=== PATIENT | female | born 1990 | race Caucasian/White ===

== ENCOUNTER 2017-01-09 23:16 | Emergency (ER) | payer MEDICAID ==
[2017-01-09 23:21] VITALS: BP 130/89
[2017-01-10] MEDS ORDERED: HYDROCODONE/ACETAMINOPHEN 5-325 MG 6 TAB/DSPK PO PRN (00:55)
--- NOTE | 2017-01-10 00:56 | ER Document Report ---
ED Oral Problem - General Chief Complaint: Toothache Stated Complaint: TOOTHACHE Time seen by provider: 00:55 Mode of Arrival: Ambulatory Information source: Patient TRAVEL OUTSIDE OF THE [place] IN LAST 30 DAYS: No - HPI Patient complains to provider of: Toothache Onset: This evening Onset: Gradual Quality of pain: Achy, Pressure Severity: Moderate Pain Level: 4 Context: Fractured tooth Associated symptoms: None Similar symptoms previously: No Recently seen / treated by doctor/dentist: No Notes: Patient is a 26-year-old female who recently moved to the area from [place] presents to the emergency room complaining of dental pain started approximately 8 hours prior to arrival, she reports a history of a fractured tooth but is unsure when she actually fractured it, denies any recent injury, no fevers, no drainage - Related Data Allergies/Adverse Reactions: No Known Allergies Allergy (Verified 01/09/17 23:48) Past Medical History - General Information source: Patient - Social History Smoking Status: Current Every Day Smoker Frequency of alcohol use: Occasional Drug Abuse: None Family History: Reviewed & Not Pertinent Patient has suicidal ideation: No Patient has homicidal ideation: No Renal/ Medical History: Denies: Hx Peritoneal Dialysis Review of Systems - Review of Systems Constitutional: No symptoms reported EENT: Dental problem Cardiovascular: No symptoms reported Respiratory: No symptoms reported Gastrointestinal: No symptoms reported Genitourinary: No symptoms reported Female Genitourinary: No symptoms reported Musculoskeletal: No symptoms reported Skin: No symptoms reported Hematologic/Lymphatic: No symptoms reported Neurological/Psychological: No symptoms reported -: Yes All other systems reviewed and negative Physical Exam - Vital signs Vitals: Temp Pulse Resp BP Pulse Ox 97.9 F 71 16 130/89 H 98 01/09/17 23:20 01/09/17 23:20 01/09/17 23:20 01/09/17 23:20 01/09/17 23:20 Interpretation: Normal - General Notes: - General General appearance: Appears well, Alert In distress: None - HEENT Head: Normocephalic, Atraumatic Eyes: Normal Conjunctiva: Normal Extraocular movements intact: Yes Eyelashes: Normal Pupils: PERRL - Respiratory Respiratory status: No respiratory distress - Cardiovascular Rhythm: Regular - Abdominal Inspection: Normal - Back Back: Normal - Extremities General upper extremity: Normal inspection General lower extremity: Normal inspection - Neurological Neuro grossly intact: Yes Orientation: AAOx4 Miguel Coma Scale Eye Opening: Spontaneous Miguel Coma Scale Verbal: Oriented Miguel Coma Scale Motor: Obeys Commands Rogers Coma Scale Total: 15 - Psychological Associated symptoms: Normal affect, Normal mood - Skin Skin Temperature: Warm Skin Moisture: Dry Skin Color: Normal - HEENT Mouth/Lips: Dental fracture Mucous membranes: Normal Teeth diagram: 1 - Dental fracture, mild erythema to gingiva Course - Re-evaluation Re-evalutation: 01/10/17 05:45 Patient provided with pain medication and information for follow-up with dentist in the area, advised to return if symptoms worsen, patient acknowledges understanding and agreement with this plan - Vital Signs Vital signs: Temp Pulse Resp BP Pulse Ox 97.9 F 71 16 130/89 H 98 01/09/17 23:20 01/09/17 23:20 01/09/17 23:20 01/09/17 23:20 01/09/17 23:20 Discharge - Discharge Clinical Impression: Tooth ache Condition: Stable Disposition: HOME, SELF-CARE Instructions: Toothache ([facility]), Oral Narcotic Medication ([facility]), [facility], Dentist Additional Instructions: Follow up with a dentist within the next week. Return to the ER immediately if symptoms worsen or any additional concerns. Prescriptions: Hydrocodone/Acetaminophen [Hydrocodon-Acetaminophen 5-325] 1 each PO Q6 #20 tablet
== END 2017-01-10 01:05 | disposition home or self-care (01) ==
LOC: EDBD 23:16 → ER 23:16
DX: K08.89 Other specified disorders of teeth and supporting structures (principal); F17.200 Nicotine dependence, unspecified, uncomplicated; L53.9 Erythematous condition, unspecified
CPT/HCPCS: 99282

== ENCOUNTER → 2018-08-30 | Outpatient (CLI) | payer SELFPAY ==
--- NOTE | 2018-08-30 16:33 | RADIOLOGY REPORT (SQ) ---
EXAM DESCRIPTION: U/S [id number] TRNABD 1GES W/ODOP COMPLETED DATE/TIME: 08/30/2018 4:19 pm REASON FOR STUDY: Z34.81 ENCOUNTER FOR SUPRVSN OF NORMAL , FIRST TRIMESTER Z34.81 ENCOUNTE R FOR SUPRVSN OF NORMAL , FIRST TRIM COMPARISON: None. TECHNIQUE: Transvaginal and transabdominal static and realtime grayscale images acquired of the pelv is. Additional selected spectral and color Doppler images recorded. All images stored on PACs. bHCG: Not available. CLINICAL DATES: EGA LIMITATIONS: None. FINDINGS: FETUS: Single Living intrauterine . ULTRASOUND EGA: 11 weeks 2 days ULTRASOUND TAMARA: 03/19/2019 EFW: Not applicable less than 20 weeks. CRL: 4.5 cm FHR: 162 beats per minute. SURVEY: No visualized anomalies. AMNIOTIC FLUID: Adequate amount. PLACENTA: Not yet developed due to early gestation. SUBCHORIONIC BLEED: No. SIZE OF BLEED: Not applicable. UTERUS: No masses. No anomalies. CERVICAL LENGTH: 4.3 cm. Closed. RIGHT ADNEXA: Ovary not identified due to poor acoustical window. No adnexal free fluid. No adnexal masses. LEFT ADNEXA: Ovary not identified due to poor acoustical window. No adnexal free fluid. No adnexal masses. FREE FLUID: None. OTHER: No other significant finding. IMPRESSION: LIVING INTRAUTERINE . EGA 11 weeks 2 days. Trimester of : First - 0 to 13 weeks. TECHNICAL DOCUMENTATION: JOB ID: [id number] [employer]- All Rights Reserved Reading location - IP/workstation name: [email or web address]
== END ==
LOC: RAD 18:30
PROVIDERS: ATTEND Nurse Practitioner
DX: Z34.81 Encounter for supervision of other normal pregnancy, first trimester (principal)
CPT/HCPCS: 76801

== ENCOUNTER 2018-12-27 13:23 | Emergency (ER) | payer MEDICAID ==
[2018-12-27 13:44] VITALS: BP 118/58
[2018-12-27] MEDS ORDERED: RINGERS SOLUTION,LACTATED 1,000 ML IV ONE (14:46)
--- NOTE | 2018-12-27 14:47 | ER Document Report ---
ED Medical Screen (RME) - General Chief Complaint: Back Pain Stated Complaint: BACK PAIN Time Seen by Provider: 12/27/18 14:40 Primary Care Provider: ABDOUL BHATTI NP [Primary Care Provider] - Follow up as needed Notes: 29 weeks female, , presents with lower back pain general malaise, general body aches and pain, sore throat for the last 2-3 days. She is currently on Keflex for presumed UTI. Examination pharyngotonsillar mucosa is erythematous, appears weak and dehydrated. TRAVEL OUTSIDE OF THE [place] IN LAST 30 DAYS: No - Related Data Allergies/Adverse Reactions: No Known Allergies Allergy (Verified 12/27/18 13:25) Past Medical History Renal/ Medical History: Denies: Hx Peritoneal Dialysis Physical Exam - Vital signs Vitals: Temp Pulse Resp BP Pulse Ox 97.5 F 71 14 118/58 L 97 12/27/18 13:43 12/27/18 13:43 12/27/18 13:43 12/27/18 13:43 12/27/18 13:43 Course - Vital Signs Vital signs: Temp Pulse Resp BP Pulse Ox 97.5 F 71 14 118/58 L 97 12/27/18 13:43 12/27/18 13:43 12/27/18 13:43 12/27/18 13:43 12/27/18 13:43 Doctor's Discharge - Discharge Referrals: ABDOUL BHATTI NP [Primary Care Provider] - Follow up as needed
[2018-12-27 15:34] LABS: HEMATOCRIT 39.3 % (36.0-47.0); HEMOGLOBIN 13.5 g/dL (12.0-15.5); MEAN CORPUSCULAR HEMOGLOBIN 31.1 pg (27.0-33.4); MEAN CORPUSCULAR HGB CONC 34.3 g/dL (32.0-36.0); MEAN CORPUSCULAR VOLUME 91 fl (80-97); PLATELET COUNT 202 10^3/uL (150-450); RED BLOOD COUNT 4.32 10^6/uL (3.72-5.28); RED CELL DISTRIBUTION WIDTH 13.9 % (11.5-14.0); WHITE BLOOD COUNT 11.9 10^3/uL (4.0-10.5)
[2018-12-27 16:42] LABS: APPEARANCE,URINE CLOUDY; BILIRUBIN,URINE NEGATIVE (NEGATIVE); COLOR,URINE YELLOW; GLUCOSE, URINE NEGATIVE (NEGATIVE); KETONES,URINE TRACE mg/dL (NEGATIVE); LEUKOCYTE ESTERASE,URINE MODERATE (NEGATIVE); NITRITE,URINE NEGATIVE (NEGATIVE); PROTEIN,URINE NEGATIVE (NEGATIVE); UROBILINOGEN,URINE NEGATIVE mg/dL (<2.0)
[2018-12-27 16:45] LABS: A TYPE INFLUENZA AG NEGATIVE (NEGATIVE); B INFLUENZA AG NEGATIVE (NEGATIVE)
[2018-12-27 17:30] LABS: ALANINE AMINOTRANSFERASE 19 U/L (9-52); ALBUMIN 3.7 g/dL (3.5-5.0); ALKALINE PHOSPHATASE 93 U/L (38-126); ANION GAP 10 (5-19); ASPARTATE AMINO TRANSFERASE 16 U/L (14-36); BILIRUBIN,DIRECT 0.2 mg/dL (0.0-0.4); BILIRUBIN,TOTAL 0.4 mg/dL (0.2-1.3); BLOOD UREA NITROGEN 6 mg/dL (7-20); CARBON DIOXIDE 23 mmol/L (22-30); CHLORIDE 104 mmol/L (98-107); GLUCOSE 83 mg/dL (75-110); POTASSIUM 4.1 mmol/L (3.6-5.0); SODIUM 136.5 mmol/L (137-145); TOTAL PROTEIN 6.7 g/dL (6.3-8.2)
--- NOTE | 2018-12-27 17:37 | RADIOLOGY REPORT (SQ) ---
EXAM DESCRIPTION: U/S OB LIMITED COMPLETED DATE/TIME: 12/27/2018 5:26 pm REASON FOR STUDY: abdominal pain 29wks gravid COMPARISON: 08/30/2018 TECHNIQUE: Limited transabdominal grayscale ultrasound for evaluation of specific requested obstetri mayo parameters. LIMITATIONS: None. FINDINGS: CERVICAL LENGTH: Not measured. Closed. АННА: 17.5 cm. FHR: 147 beats per minute. PRESENTATION: Breech. PLACENTA: Posterior. ANATOMY: Not assessed OTHER: No other significant findings. IMPRESSION: LIMITED OBSTETRICAL ULTRASOUND WITH MEASURED PARAMETERS DELINEATED ABOVE. Trimester of : Third trimester - 28 weeks to delivery. TECHNICAL DOCUMENTATION: JOB ID: [id number] [employer]- All Rights Reserved Reading location - IP/workstation name: [email or web address]
[2018-12-27 17:45] LABS: FREE T4 (FREE THYROXINE) 0.99 ng/dL (0.78-2.19)
[2018-12-27] MEDS ORDERED: AMOXICILLIN TR/POT CLAVULANATE 500-125 MG TAB PO ONE (17:54)
--- NOTE | 2018-12-27 17:56 | ER Document Report ---
ED General - General Chief Complaint: Back Pain Stated Complaint: BACK PAIN Time Seen by Provider: 12/27/18 14:40 Primary Care Provider: ABDOUL BHATTI NP [Primary Care Provider] - Follow up in 3-5 days Notes: Patient is a 28-year-old female, that is 29 weeks gravid, that presents to the emergency department for chief complaint of right ear pain, sore throat and abdominal discomfort. Patient states she is been feeling like this for a few days now, she was initially seen by urgent care on Tuesday and was diagnosed with an ear infection and a UTI and started on Keflex, she has not taken all the doses and has missed a few. She states her symptoms have persisted, she had a dry cough as well, she describes her abdominal pain as a cramping sensation as a 2 out of 10 at this time, is overall felt fatigued, and having body aches all over. She denies fevers, chills, chest pain, shortness of breath, nausea, vo miting, or diarrhea. Denies vaginal bleeding, dysuria, or hematuria. Past Medical History: Denies chronic medical conditions Past Surgical History: Denies recent or pertinent surgical history Social History: Denies current tobacco, alcohol or drug use. Family History: Reviewed and noncontributory for presenting illness Allergies: Reviewed, see documented allergy list. REVIEW OF SYSTEMS: Other than noted above, the 12 point review of systems was reviewed with the patient and were negative, all pertinent findings are included in the HPI. PHYSICAL EXAMINATION: Vital signs reviewed, nursing noted reviewed. GENERAL: Well-appearing, well-nourished and in no acute distress. HEAD: Atraumatic, normocephalic. EYES: Eyes appear normal, extraocular movements intact, sclera anicteric, conjunctiva are normal. ENT: nares patent, oropharynx clear without exudates. Moist mucous membranes. Right TM is erythematous, bulging and injected, left TM appears normal. NECK: Normal range of motion, supple without lymphadenopathy LUNGS: Breath sounds clear to auscultation bilaterally and equal. No wheezes rales or rhonchi. HEART: Regular rate and rhythm without murmurs ABDOMEN: Soft, nontender, gravid, normoactive bowel sounds. No rebound, guarding, or rigidity. No masses appreciated. EXTREMITIES: Nontender, good range of motion, no pitting or edema. NEUROLOGICAL: No focal neurological deficits. Moves all extremities spontaneously Motor and sensory grossly intact on exam. PSYCH: Normal mood, normal affect. SKIN: Warm, Dry, normal turgor, no rashes or lesions noted on exposed skin TRAVEL OUTSIDE OF THE [place] IN LAST 30 DAYS: No - Related Data Allergies/Adverse Reactions: No Known Allergies Allergy (Verified 12/27/18 13:25) Past Medical History - Social History Smoking Status: Current Some Day Smoker Chew tobacco use (# tins/day): No Frequency of alcohol use: None Drug Abuse: None Family History: Reviewed & Not Pertinent Patient has suicidal ideation: No Patient has homicidal ideation: No Renal/ Medical History: Denies: Hx Peritoneal Dialysis Physical Exam - Vital signs Vitals: Temp Pulse Resp BP Pulse Ox 97.5 F 71 14 118/58 L 97 12/27/18 13:43 12/27/18 13:43 12/27/18 13:43 12/27/18 13:43 12/27/18 13:43 Course - Re-evaluation Re-evalutation: Patient seen and examined vital signs reviewed. Laboratory data and imaging were ordered as appropriate for the patient's presenting symptoms and complaint, with consideration of any critical or life threatening conditions that may be associated with their obtained history and exam as noted above. Patient was treated with Tylenol and IV fluids Results were reviewed when available and demonstrated mild leukocytosis, was otherwise unremarkable, OB ultrasound was unremarkable for any acute or concerning findings, single live intrauterine . UA was positive for signs of UTI, sent for culture The patient was re-evaluated and was stable and improved Evaluation was most consistent with acute otitis media, UTI, will treat with Aug mentin for 7 days and have her follow-up with PRINTING EQUIPMENT MECHANIC APPRENTICE. Advised her to discontinue the previously prescribed Keflex. Results were discussed with the patient at this point, after careful consideration I feel that that patient can be discharged from the emergency department, the patient was educated treatments and reasons to return to the emergency department based on their presumed diagnosis as noted above, they were advised to followup with a primary care physician in 2-3 days. Patient was agree able to plan of care. *Note is created using voice recognition software and may contain spelling, s yntax or grammatical errors. Laboratory 02/13/19 02/13/19 02/13/19 15:00 15:05 15:05 WBC 11.9 H RBC 4.32 Hgb 13.5 Hct 39.3 MCV 91 MCH 31.1 MCHC 34.3 RDW 13.9 Plt Count 202 Sodium Cancelled Potassium Cancelled Chloride Cancelled Carbon Dioxide Cancelled Anion Gap Cancelled BUN Cancelled Creatinine Cancelled Est GFR ( Amer) Cancelled Est GFR (Non-Af Amer) Cancelled Glucose Cancelled Calcium Cancelled Total Bilirubin Cancelled Direct Bilirubin Cancelled Neonat Total Bilirubin Cancelled Neonat Direct Bilirubin Cancelled Neonat Indirect Bili Cancelled AST Cancelled ALT Cancelled Alkaline Phosphatase Cancelled Total Protein Cancelled Albumin Cancelled TSH Free T4 Urine Color Urine Appearance Urine pH Ur Specific [place] Urine Protein Urine Glucose (UA) Urine Ketones Urine Blood Urine Nitrite Urine Bilirubin Urine Urobilinogen Ur Leukocyte Esterase Urine WBC (Auto) Urine RBC (Auto) Urine Bacteria (Auto) Squamous Epi Cells Auto Urine Mucus (Auto) Urine Ascorbic Acid Influenza A (Rapid) Influenza B (Rapid) Group A Strep Rapid NEGATIVE 12/27/18 12/27/18 12/27/18 15:05 16:25 16:50 WBC RBC Hgb Hct MCV MCH MCHC RDW Plt Count Sodium Potassium Chloride Carbon Dioxide Anion Gap BUN Creatinine Est GFR ( Amer) Est GFR (Non-Af Amer) Glucose Calcium Total Bilirubin Direct Bilirubin Neonat Total Bilirubin Neonat Direct Bilirubin Neonat Indirect Bili AST ALT Alkaline Phosphatase Total Protein Albumin TSH 0.39 L Free T4 0.99 Urine Color YELLOW Urine Appearance CLOUDY Urine pH 6.0 Ur Specific [place] 1.020 Urine Protein NEGATIVE Urine Glucose (UA) NEGATIVE Urine Ketones TRACE H Urine Blood NEGATIVE Urine Nitrite NEGATIVE Urine Bilirubin NEGATIVE Urine Urobilinogen NEGATIVE Ur Leukocyte Esterase MODERATE H Urine WBC (Auto) 11 Urine RBC (Auto) 4 Urine Bacteria (Auto) 3+ Squamous Epi Cells Auto 21 Urine Mucus (Auto) FEW Urine Ascorbic Acid NEGATIVE Influenza A (Rapid) NEGATIVE Influenza B (Rapid) NEGATIVE Group A Strep Rapid 12/27/18 16:50 WBC RBC Hgb Hct MCV MCH MCHC RDW Plt Count Sodium 136.5 L Potassium 4.1 Chloride 104 Carbon Dioxide 23 Anion Gap 10 BUN 6 L Creatinine 0.50 L Est GFR ( Amer) > 60 Est GFR (Non-Af Amer) > 60 Glucose 83 Calcium 9.0 Total Bilirubin 0.4 Direct Bilirubin 0.2 Neonat Total Bilirubin Not Reportable Neonat Direct Bilirubin Not Reportable Neonat Indirect Bili Not Reportable AST 16 ALT 19 Alkaline Phosphatase 93 Total Protein 6.7 Albumin 3.7 TSH Free T4 Urine Color Urine Appearance Urine pH Ur Specific [place] Urine Protein Urine Glucose (UA) Urine Ketones Urine Blood Urine Nitrite Urine Bilirubin Urine Urobilinogen Ur Leukocyte Esterase Urine WBC (Auto) Urine RBC (Auto) Urine Bacteria (Auto) Squamous Epi Cells Auto Urine Mucus (Auto) Urine Ascorbic Acid Influenza A (Rapid) Influenza B (Rapid) Group A Strep Rapid Obstetrics Ultrasound 12/27/18 16:13 IMPRESSION: LIMITED OBSTETRICAL ULTRASOUND WITH MEASURED PARAMETERS DELINEATED ABOVE. Trimester of : Third trimester - 28 weeks to delivery. - Vital Signs Vital signs: Temp Pulse Resp BP Pulse Ox 97.5 F 71 14 118/58 L 97 12/27/18 13:43 12/27/18 13:43 12/27/18 13:43 12/27/18 13:43 12/27/18 13:43 - Laboratory Result Diagrams: 12/27/18 15:05 12/27/18 16:50 Laboratory results interpreted by me: 12/27/18 12/27/18 12/27/18 15:05 16:25 16:50 WBC 11.9 H Sodium BUN Creatinine TSH 0.39 L Urine Ketones TRACE H Ur Leukocyte Esterase MODERATE H 12/27/18 16:50 WBC Sodium 136.5 L BUN 6 L Creatinine 0.50 L TSH Urine Ketones Ur Leukocyte Esterase Discharge - Discharge Clinical Impression: Otitis media Qualifiers: Otitis media type: unspecified Chronicity: acute Qualified Code(s): H66.90 - Otitis media, unspecified, unspecified ear UTI (urinary tract infection) Qualifiers: Urinary tract infection type: site unspecified Hematuria presence: without hematuria Qualified Code(s): N39.0 - Urinary tract infection, site not specified Disposition: HOME, SELF-CARE Instructions: Otitis Media ([facility]), Urinary Tract Infection ([facility]) Additional Instructions: Please take the prescribed antibiotic and complete the entire course, over 7 days, and discontinue your previously prescribed antibiotic. Please follow-up with the PRINTING EQUIPMENT MECHANIC APPRENTICE's. And you can take Tylenol/acetaminophen 1000 mg every 8 hours as needed for ear pain, or generalized body aches. Prescriptions: Amox Tr/Potassium Clavulanate [Augmentin 875-125 Tablet] 1 tab PO BID #14 tablet Referrals: ABDOUL HBATTI, POLICE CAPTAIN SENIOR [Primary Care Provider] - Follow up in 3-5 days
[2018-12-27 17:59] LABS: THYROID STIMULATING HORMONE 0.39 uIU/mL (0.47-4.68)
== END 2018-12-27 18:49 | disposition home or self-care (01) ==
LOC: ER 13:23
DX: O99.830 Other infection carrier state complicating pregnancy (principal); H66.90 Otitis media, unspecified, unspecified ear; O23.43 Unspecified infection of urinary tract in pregnancy, third trimester; O26.893 Other specified pregnancy related conditions, third trimester; M54.9 Dorsalgia, unspecified; H92.01 Otalgia, right ear; J02.9 Acute pharyngitis, unspecified; R10.9 Unspecified abdominal pain; Z3A.29 29 weeks gestation of pregnancy; F17.200 Nicotine dependence, unspecified, uncomplicated
CPT/HCPCS: 99284; 96360; 36415; 87070; 87086; 84439; 87880; 84443; 85027; 80053; 81001; 87804; 76815; J3490; J7120

== ENCOUNTER 2019-01-04 12:05 | Outpatient (CLI) | payer MEDICAID ==
[2019-01-04] MEDS ORDERED: ACETAMINOPHEN 325 MG TABLET PO ONE (12:50)
[2019-01-04] MEDS ORDERED: RINGERS SOLUTION,LACTATED 1,000 ML IV PRN (12:50)
[2019-01-04 13:01] LABS: APPEARANCE,URINE SLIGHTLY-CLOUDY; BILIRUBIN,URINE SMALL (NEGATIVE); COLOR,URINE AMBER; GLUCOSE, URINE NEGATIVE (NEGATIVE); KETONES,URINE TRACE mg/dL (NEGATIVE); LEUKOCYTE ESTERASE,URINE LARGE (NEGATIVE); NITRITE,URINE NEGATIVE (NEGATIVE); PROTEIN,URINE NEGATIVE (NEGATIVE); URINE SPECIFIC GRAVITY 1.028
[2019-01-04] MEDS ORDERED: ACETAMINOPHEN 325 MG TABLET ONE (13:15)
[2019-01-04 13:24] LABS: URINE AMPHETAMINES SCREEN NEGATIVE; URINE BARBITURATES SCREEN NEGATIVE; URINE BENZODIAZEPINES SCREEN NEGATIVE; URINE COCAINE SCREEN NEGATIVE; URINE MARIJUANA (THC) SCREEN NEGATIVE; URINE METHADONE SCREEN NEGATIVE; URINE PHENCYCLIDINE SCREEN NEGATIVE
== END 2019-01-04 15:39 | disposition home or self-care (01) ==
LOC: LC 12:05
PROVIDERS: ATTEND Obstetrics & Gynecology Gynecology
PROC: 4A1HXCZ Monitoring of Products of Conception, Cardiac Rate, External Approach (ICD-10-PCS; principal; 2019-01-04)
DX: O26.893 Other specified pregnancy related conditions, third trimester (principal); R10.2 Pelvic and perineal pain; M54.5 Low back pain; Z3A.29 29 weeks gestation of pregnancy
CPT/HCPCS: 59899; 81005; 80307; J3490

== ENCOUNTER 2019-03-05 16:27 | Emergency (ER) | payer MEDICAID ==
--- NOTE | 2019-03-05 16:56 | ER Document Report ---
ED Medical Screen (RME) - General Chief Complaint: Shortness Of Breath Stated Complaint: SHORTNESS OF BREATH Time Seen by Provider: 03/05/19 16:48 Primary Care Provider: KESHA MARTIN MD [Primary Care Provider] - Follow up as needed Mode of Arrival: Ambulatory Information source: Patient TRAVEL OUTSIDE OF THE [place] IN LAST 30 DAYS: No - HPI Patient complains to provider of: sob Notes: 03/05/19 16:54 Patient sent in by her DIRECTOR STATISTICAL PROGRAMMING. The patient is 38 weeks . G6, P3. For the last week she has gained 4 pounds and feels like her legs are more swollen than normal. For the last 24 hours been feeling significantly short of breath. She is unable to go up her stairs due to shortness of breath. She was seen in the OBs office and was sent to the emergency department to be evaluated for her shortness of breath. If we are able to clear her from a shortness of breath standpoint, she is instructed to go up to labor and delivery for evaluation. Exam Nontoxic-appearing. Stable vitals. Patient does appear to be slightly short of breath when talking. Lungs are clear. She does have some edema to the lower extremities. Heart sounds normal. Plan CBC, CMP, troponin, BNP, EKG, uric acid, chest x-ray, urinalysis. An initial examination was made on the patient as part of the triage process, and it was determined a more comprehensive evaluation was necessary. Initial labs were ordered and patient was transferred to another provider in the ED who assumed care and finished evaluation and plan. - Related Data Allergies/Adverse Reactions: No Known Allergies Allergy (Verified 03/05/19 16:27) Past Medical History - Social History Chew tobacco use (# tins/day): No Frequency of alcohol use: None Drug Abuse: None Renal/ Medical History: Denies: Hx Peritoneal Dialysis Physical Exam - Vital signs Vitals: Temp Pulse Resp BP Pulse Ox 97.8 F 101 H 16 122/86 H 97 03/05/19 16:31 03/05/19 16:31 03/05/19 16:31 03/05/19 16:31 03/05/19 16:31 Course - Vital Signs Vital signs: Temp Pulse Resp BP Pulse Ox 97.8 F 101 H 16 122/86 H 97 03/05/19 16:31 03/05/19 16:31 03/05/19 16:31 03/05/19 16:31 03/05/19 16:31 Doctor's Discharge - Discharge Referrals: KESHA MARTIN MD [Primary Care Provider] - Follow up as needed
--- NOTE | 2019-03-05 17:43 | RADIOLOGY REPORT (SQ) ---
EXAM DESCRIPTION: CHEST SINGLE VIEW COMPLETED DATE/TIME: 03/05/2019 5:09 pm REASON FOR STUDY: preg, sob, leg swelling COMPARISON: None. EXAM PARAMETERS: NUMBER OF VIEWS: One view. TECHNIQUE: Single frontal radiographic view of the chest acquired. RADIATION DOSE: NA LIMITATIONS: None. FINDINGS: LUNGS AND PLEURA: No opacities, masses or pneumothorax. No pleural effusion. MEDIASTINUM AND HILAR STRUCTURES: No masses. Contour normal. HEART AND VASCULAR STRUCTURES: Heart normal in size. Normal vasculature. BONES: No acute findings. HARDWARE: None in the chest. OTHER: No other significant finding. IMPRESSION: NO ACUTE RADIOGRAPHIC FINDING IN THE CHEST. TECHNICAL DOCUMENTATION: JOB ID: [id number] 2010 [employer]- All Rights Reserved Reading location - IP/workstation name: [email or web address]
[2019-03-05 17:47] LABS: ABSOLUTE EOSINOPHILS # (AUTO) 0.1 10^3/uL (0.0-0.6); ABSOLUTE MONOCYTES (AUTO) 0.8 10^3/uL (0.1-1.4); ABSOLUTE NEUT (AUTO) 5.8 10^3/uL (1.7-8.2); BASOPHILS % (AUTO) 0.2 % (0-2); EOSINOPHILS % (AUTO) 0.9 % (0-6); HEMATOCRIT 37.2 % (36.0-47.0); HEMOGLOBIN 12.9 g/dL (12.0-15.5); LYMPHOCYTES % (AUTO) 22.6 % (13-45); MEAN CORPUSCULAR HEMOGLOBIN 31.4 pg (27.0-33.4); MEAN CORPUSCULAR HGB CONC 34.7 g/dL (32.0-36.0); MEAN CORPUSCULAR VOLUME 91 fl (80-97); MONOCYTES % (AUTO) 9.4 % (3-13); PLATELET COUNT 139 10^3/uL (150-450); RED BLOOD COUNT 4.11 10^6/uL (3.72-5.28); RED CELL DISTRIBUTION WIDTH 13.6 % (11.5-14.0); SEGMENTED NEUTROPHILS % (AUTO) 66.9 % (42-78); TOTAL CELLS COUNTED % (AUTO) 100 %; WHITE BLOOD COUNT 8.7 10^3/uL (4.0-10.5)
[2019-03-05 18:12] LABS: ALANINE AMINOTRANSFERASE 18 U/L (9-52); ALBUMIN 3.5 g/dL (3.5-5.0); ALKALINE PHOSPHATASE 156 U/L (38-126); ANION GAP 6 (5-19); ASPARTATE AMINO TRANSFERASE 16 U/L (14-36); BILIRUBIN,DIRECT 0.1 mg/dL (0.0-0.4); BILIRUBIN,TOTAL 0.5 mg/dL (0.2-1.3); BLOOD UREA NITROGEN 8 mg/dL (7-20); CALCIUM 9.7 mg/dL (8.4-10.2); CARBON DIOXIDE 21 mmol/L (22-30); CHLORIDE 108 mmol/L (98-107); GLUCOSE 88 mg/dL (75-110); POTASSIUM 4.1 mmol/L (3.6-5.0); SODIUM 135.2 mmol/L (137-145); TOTAL PROTEIN 6.7 g/dL (6.3-8.2); URIC ACID 4.8 mg/dL (2.5-6.2)
[2019-03-05 18:23] LABS: NT PRO BNP 56 pg/mL (<125)
[2019-03-05 18:25] LABS: TROPONIN I < 0.012 ng/mL
--- NOTE | 2019-03-05 19:42 | EKG REPORT ---
SEVERITY:- NORMAL ECG - SINUS RHYTHM : Confirmed by: Aashish Llamas MD 05-Mar-2019 19:41:08
--- NOTE | 2019-03-05 21:16 | ER Document Report ---
ED General - General Chief Complaint: Shortness Of Breath Stated Complaint: SHORTNESS OF BREATH Time Seen by Provider: 03/05/19 16:48 Primary Care Provider: KESHA MARTIN MD [ACTIVE STAFF] - Follow up as needed Mode of Arrival: Ambulatory Notes: Patient is a 28-year-old female at 38 weeks gestation who presents with 24 hours of increasing shortness of breath. Patient apparently has gained 4 pounds within the past 1 week, states that her OB was concerned when she went for a visit today and referred to the emergency department for assessment. Patient reports that her shortness of breath is worsened by exertion. Improved by rest. She regarded as being moderate to severe in nature. Relatively gradual in onset and worsening since that time. Has not had similar symptoms during her previous pregnancies. Denies a history of DVT or pulmonary embolus. Denies fever, cough, sputum production, orthopnea or unilateral leg swelling. She denies any other chronic medical problems or prior surgical history. TRAVEL OUTSIDE OF THE [place] IN LAST 30 DAYS: No - Related Data Allergies/Adverse Reactions: No Known Allergies Allergy (Verified 03/05/19 16:27) Past Medical History - General Information source: Patient - Social History Smoking Status: Never Smoker Chew tobacco use (# tins/day): No Frequency of alcohol use: None Drug Abuse: None Lives with: Family Family History: Reviewed & Not Pertinent Patient has suicidal ideation: No Patient has homicidal ideation: No Renal/ Medical History: Denies: Hx Peritoneal Dialysis Review of Systems - Review of Systems Notes: Constitutional: Negative for fever. HENT: Negative for sore throat. Eyes: Negative for visual changes. Cardiovascular: Negative for chest pain. Respiratory: Positive for shortness of breath. Gastrointestinal: Negative for abdominal pain, vomiting or diarrhea. Genitourinary: Negative for dysuria. Musculoskeletal: Negative for back pain. Skin: Negative for rash. Neurological: Negative for headaches, weakness or numbness. 10 point ROS negative except as marked above and in HPI. Physical Exam - Vital signs Vitals: Temp Pulse Resp BP Pulse Ox 97.8 F 101 H 16 122/86 H 97 03/05/19 16:31 03/05/19 16:31 03/05/19 16:31 03/05/19 16:31 03/05/19 16:31 Interpretation: Tachycardic Notes: PHYSICAL EXAMINATION: GENERAL: Well-appearing, well-nourished and in no acute distress. HEAD: Atraumatic, normocephalic. EYES: Pupils equal round and reactive to light, extraocular movements intact, sclera anicteric, conjunctiva are normal. ENT: nares patent, oropharynx clear without exudates. Moist mucous membranes. NECK: Normal range of motion, supple without lymphadenopathy LUNGS: Breath sounds clear to auscultation bilaterally and equal. No wheezes rales or rhonchi. HEART: Regular rate and rhythm without murmurs ABDOMEN: Soft, gravid uterus, nontender, normoactive bowel sounds. No guarding, no rebound. No masses appreciated. EXTREMITIES: Normal range of motion, 2+ edema in the bilateral lower extremities that is equal and symmetric. No cyanosis. NEUROLOGICAL: No focal neurological deficits. Moves all extremities spontaneously and on command. PSYCH: Normal mood, normal affect. SKIN: Warm, Dry, normal turgor, no rashes or lesions noted. Course - Re-evaluation Re-evalutation: 03/05/19 21:15 Patient presents with 24 hours of progressively worsening shortness of breath worsening with exertion. The patient is currently in the advanced stages of third trimester and not much elevated risk for pulmonary embolus. She is mildly tachycardic at the time of my assessment with heart rate of 105 on manual count at bedside. She does appear to have some mild labored breathing although is in no distress. She has equal and symmetric 2+ edema in the bilateral lower extremities. Her workup to this point is otherwise unremarkable, normal troponin, normal EKG, chest x-ray is clear. The obvious concern at this point is that the patient is high risk for an acute pulmonary embolus and does give symptomology that is concerning for this possible etiology. We had an extensive risks and benefits conversation regarding proceeding with CTA of the chest including radius section exposure to both mother and baby as well as the risks of missing this diagnosis which could include after this conversation the mother did elect to proceed with CTA and understands the risks of this procedure. 03/05/19 23:07 CT of the chest negative for any evidence of acute pulmonary embolus. Suspect that patient symptoms are likely secondary to advanced , increased fluid in the extremities. At this time will discharge with return precautions and follow-up recommendations. Verbal discharge instructions given a the bedside and opportunity for questions given. Medication warnings reviewed. Patient is in agreement with this plan and has verbalized understanding of return precautions and the need for primary care follow-up in the next 24-72 hours. - Vital Signs Vital signs: Temp Pulse Resp BP Pulse Ox 97.5 F 89 21 H 137/82 H 97 03/05/19 20:37 03/05/19 23:21 03/05/19 23:21 03/05/19 23:21 03/05/19 23:21 - Laboratory Result Diagrams: 03/05/19 17:21 03/05/19 17:21 Laboratory results interpreted by me: 03/05/19 03/05/19 17:21 17:21 Plt Count 139 L Sodium 135.2 L Chloride 108 H Carbon Dioxide 21 L Creatinine 0.46 L Alkaline Phosphatase 156 H - Diagnostic Test Radiology reviewed: Reports reviewed - EKG Interpretation by Me Additional EKG results interpreted by me: 03/06/19 03:00 Sinus rhythm, rate 76. No ST elevations or depressions. QTC is 420 Discharge - Discharge Clinical Impression: Shortness of breath due to in third trimester, Bilateral lower extremity edema Condition: Good Disposition: HOME, SELF-CARE Additional Instructions: Thankfully your CT scan is negative for any evidence of a blood clot in your lung. Your other blood work is likewise normal. Your symptoms of shortness of breath are likely due to increasing fluid retention during your as well as the advanced stage of your . Please return if your symptoms worsen, if you become unable to exert your self secondary to shortness of breath, you develop a fever greater than 100.4 F, you have persistent vomiting, or you have any other symptoms that are worrisome to you. Referrals: KESHA MARTIN MD [ACTIVE STAFF] - Follow up as needed
--- NOTE | 2019-03-05 22:27 | RADIOLOGY REPORT (SQ) ---
EXAM DESCRIPTION: CT CHEST ANGIOGRAPHY WITHOUT THEN WITH IV CONTRAST COMPLETED DATE/TME: 03/05/2019 21:14 CLINICAL HISTORY: 28 years, Female, eval pe COMPARISON: None. TECHNIQUE: CT chest angiography was performed following intravenous administration of contrast. Multiplanar reformatted images were provided. 3-D reformatted images were performed on an independent workstation (to include sagittal, and coronal MIPS). Images stored on PACS. All CT scanners at this facility use dose modulation, iterative reconstruction, and/or weight based dosing when appropriate to reduce radiation dose to as low as reasonably achievable (ALARA). [facility]: Dose Right [facility]: CareDose [facility]: Dose Right [facility]: Teradose 4D [facility]: Smart ApiFix LIMITATIONS: None. FINDINGS: Central airways are patent. Lungs are clear. Mediastinal windows show soft tissue density within the anterior mediastinum, likely corresponding to residual thymus given the patient's age. No suspicious hilar or mediastinal lymph node enlargement is appreciated. Heart and great vessels appear normal. The study is adequate for the evaluation of pulmonary emboli. No filling defects are identified to the proximal segmental level. Limited evaluation of the upper abdomen reveals no suspicious findings though there is a partially imaged gravid uterus. Bone windows show no destructive osseous lesions. IMPRESSION: No evidence of pulmonary embolism or other acute abnormality within the chest. TECHNICAL DOCUMENTATION: Quality ID # [id number]: Final reports with documentation of one or more dose reduction techniques (e.g., Automated exposure control, adjustment of the mA and/or kV according to patient size, use of iterative reconstruction technique) copyright 2011 [employer]- All Rights Reserved
[2019-03-05 23:22] VITALS: BP 137/82
== END 2019-03-05 23:21 | disposition home or self-care (01) ==
LOC: ER 16:27
DX: O26.893 Other specified pregnancy related conditions, third trimester (principal); R06.02 Shortness of breath; R00.0 Tachycardia, unspecified; O12.03 Gestational edema, third trimester; O26.03 Excessive weight gain in pregnancy, third trimester; Z3A.38 38 weeks gestation of pregnancy
CPT/HCPCS: 36415; 71045; 71275; 80053; 83880; 84484; 84550; 85025; 93005; 93010; 99285

== ENCOUNTER 2019-03-16 20:54 | Inpatient (IN) | payer MEDICAID ==
[2019-03-16] MEDS ORDERED: RINGERS SOLUTION,LACTATED 1,000 ML IV ONE (21:14)
[2019-03-16] MEDS ORDERED: RINGERS SOLUTION,LACTATED 1,000 ML IV PRN (21:14)
[2019-03-16] MEDS ORDERED: OXYTOCIN/NORMAL SALINE 20 UNIT/1,000 ML RTUINJ ONE (21:16)
[2019-03-16] MEDS ORDERED: LIDOCAINE 1% INJ-PF (10 MG/ML) 30 ML SDV ONE (21:16)
[2019-03-16] MEDS ORDERED: MISOPROSTOL 0.2 MG TABLET ONE (21:16)
[2019-03-16] MEDS ORDERED: OXYTOCIN 10 UNIT/ML VIAL ONE (21:16)
[2019-03-16 21:25] LABS: APPEARANCE,URINE CLOUDY; BILIRUBIN,URINE NEGATIVE (NEGATIVE); COLOR,URINE YELLOW; GLUCOSE, URINE NEGATIVE (NEGATIVE); KETONES,URINE NEGATIVE (NEGATIVE); LEUKOCYTE ESTERASE,URINE LARGE (NEGATIVE); NITRITE,URINE NEGATIVE (NEGATIVE); PROTEIN,URINE NEGATIVE (NEGATIVE); URINE SPECIFIC GRAVITY 1.014; UROBILINOGEN,URINE NEGATIVE mg/dL (<2.0)
[2019-03-16 21:42] LABS: URINE AMPHETAMINES SCREEN NEGATIVE; URINE BARBITURATES SCREEN NEGATIVE; URINE BENZODIAZEPINES SCREEN NEGATIVE; URINE COCAINE SCREEN NEGATIVE; URINE MARIJUANA (THC) SCREEN NEGATIVE; URINE METHADONE SCREEN NEGATIVE; URINE PHENCYCLIDINE SCREEN NEGATIVE
[2019-03-16 21:44] LABS: ABSOLUTE BASOPHILS # (AUTO) 0.1 10^3/uL (0.0-0.2); ABSOLUTE EOSINOPHILS # (AUTO) 0.1 10^3/uL (0.0-0.6); ABSOLUTE LYMPHOCYTES (AUTO) 2.6 10^3/uL (0.5-4.7); ABSOLUTE MONOCYTES (AUTO) 0.8 10^3/uL (0.1-1.4); ABSOLUTE NEUT (AUTO) 8.1 10^3/uL (1.7-8.2); BASOPHILS % (AUTO) 0.6 % (0-2); EOSINOPHILS % (AUTO) 0.7 % (0-6); HEMATOCRIT 36.6 % (36.0-47.0); HEMOGLOBIN 12.4 g/dL (12.0-15.5); LYMPHOCYTES % (AUTO) 22.3 % (13-45); MEAN CORPUSCULAR HEMOGLOBIN 30.8 pg (27.0-33.4); MEAN CORPUSCULAR HGB CONC 33.8 g/dL (32.0-36.0); MEAN CORPUSCULAR VOLUME 91 fl (80-97); MONOCYTES % (AUTO) 7.1 % (3-13); PLATELET COUNT 157 10^3/uL (150-450); RED BLOOD COUNT 4.02 10^6/uL (3.72-5.28); RED CELL DISTRIBUTION WIDTH 13.7 % (11.5-14.0); SEGMENTED NEUTROPHILS % (AUTO) 69.3 % (42-78); TOTAL CELLS COUNTED % (AUTO) 100 %; WHITE BLOOD COUNT 11.7 10^3/uL (4.0-10.5)
[2019-03-16] MEDS ORDERED: EPHEDRINE SULFATE INJ 50 MG/1 ML AMPULE ONE (21:51)
[2019-03-16] MEDS ORDERED: BUPIVACAINE HCL 0.25 % INJ/PF (2.5 MG/1 ML) 30 ML VIAL ONE (21:52)
[2019-03-16] MEDS ORDERED: FENTANYL/BUPIVACAINE/NS/PF 300 MCG/150 ML RTUINJ EPI ONE (21:52)
[2019-03-16] MEDS ORDERED: EPINEPHRINE INJ/PF 1 MG/1 ML AMPULE ONE (21:54)
--- NOTE | 2019-03-16 22:34 | Admission Physical ---
Datetime Report Generated by CPN: 03/16/2019 22:34 CURRENT ADMISSION Chief Complaint: Uterine Contractions Admit Impression : Term, Intrauterine ; Active Labor; Intact Membranes Admit Plan: Admit to Unit; Initiate Labor Protocol ALLERGIES Medication Allergies: No Known Allergies (03/05/2019) OBSTETRICAL HISTORY EDC: 03/17/2019 00:00 : 6 Para: 3 Term: 3 : 0 SAB: 1 IAB: 1 Ectopic: 0 Livin Cesareans: 0 VBACs: 0 Multiple Births: 0 Gestational Diabetes: No Rh Sensitization: No Incompetent Cervix: No EMANUEL: No Infertility: No ART Treatment: No Uterine Anomaly: No IUGR: No Hx Previous C/S: No Macrosomia: No Hx Loss/Stillborn: No PIH: No Hx : No Placenta Previa/Abruption: No Depression/PP Depression: No PTL/PROM: No Post Hemorrhage: No MEDICAL HISTORY Diabetes: No Blood Transfusion: No Pulmonary Disease (Asthma, TB): No Breast Disease: No 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: No Heart Disease: No Hosp/Surgery: No Autoimmune Disorder: No Anesthetic Complications: No Kidney Disease: No Abnormal Pap Smear: No Neuro/Epilepsy: No Psychiatric Disorders: No Other Medical Diseases: No Hepatitis/Liver Disease: No Significant Family History: No Varicosities/Phlebitis: No Trauma/Violence : No Thyroid Dysfunction: No INFECTIOUS HISTORY Gonorrhea: No Genital Herpes: No Chlamydia: No Tuberculosis: No Syphilis: No Hepatitis: No HIV/AIDS Exposure: No Rash or Viral Illness: No HPV: No PHYSICAL EXAM General: Normal HEENT: Normal Neurologic: Normal Thyroid: Deferred Heart: Normal Lungs: Normal Breast: Deferred Back: Normal Abdomen: Normal Genitourinary Exam: Normal Extremities: Normal DTRs: Normal Pelvic Type: Adequate Vital Signs: Reviewed VAGINAL EXAM Dilatation: 6 Effacement: 70 Station: -1 Contraction Comments: irreg MEMBRANES Membranes: Intact FETUS A EGA: 39.6 Monitoring: External US FHR- Baseline: 120 Variability: Moderate 6-25bpm Accelerations: 15X15 Decelerations: None FHR Category: Category I Presentation: Vertex Admit Comment: 28yo at 39+6ega presents for regular uterine ctx and 6cm dilated. Pelvis proven to 7#11oz. c/b h/o 20wks loss. Desires BTL pp. o/w uncomplicated. She desires epidural. Anticipate . INFORMED CONSENT Informed Consent Obtained: Vaginal Delivery; Risks, Benefits and Alternatives Discussed Signature: with User ID: [email or web address]
[2019-03-16] MEDS ORDERED: OXYTOCIN/NORMAL SALINE 20 UNIT/1,000 ML RTUINJ IV PRN (23:29)
[2019-03-17] MEDS ORDERED: PROMETHAZINE HCL INJ 25 MG/1 ML VIAL IV PRN (03:04)
[2019-03-17] MEDS ORDERED: DIPHENHYDRAMINE HCL 25 MG CAPSULE PO PRN (03:04)
[2019-03-17] MEDS ORDERED: GLYCERIN/WITCH HAZEL LEAF 1 EACH MED..WIPE TP PRN (03:04)
[2019-03-17] MEDS ORDERED: OXYTOCIN/NORMAL SALINE 25,000 UNIT/1,250,000 ML RTUINJ IV PRN (03:04)
[2019-03-17] MEDS ORDERED: DIPH/PERTUSS(ACELL)/TETANUS VAC/PF 0.5 ML SYR (>=10YO) IM PRN (03:04)
[2019-03-17] MEDS ORDERED: ACETAMINOPHEN WITH CODEINE #3 TABLET PO PRN ×2 (03:04)
[2019-03-17] MEDS ORDERED: ZOLPIDEM TARTRATE 5 MG TABLET PO PRN (03:04)
[2019-03-17] MEDS ORDERED: PROMETHAZINE HCL 25 MG TABLET PO PRN (03:04)
[2019-03-17] MEDS ORDERED: ACETAMINOPHEN 325 MG TABLET PO PRN (03:04)
[2019-03-17] MEDS ORDERED: BENZOCAINE/MENTHOL AEROSOL SPRAY 56 ML TOP PRN (03:04)
[2019-03-17] MEDS ORDERED: DIBUCAINE 1% OINTMENT 56 GM TP PRN (03:04)
[2019-03-17] MEDS ORDERED: MEASLES,MUMPS&RUBELLA VACC/PF 0.5 ML VIAL SUBCUT PRN (03:04)
[2019-03-17] MEDS ORDERED: MAGNESIUM HYDROXIDE SUSP 30 ML UDCUP PO PRN (03:04)
[2019-03-17] MEDS ORDERED: NA PHOS,M-B/NA PHOS,DI-BA (ADULT) 133 ML ENEMA PR PRN (03:04)
[2019-03-17] MEDS ORDERED: PROMETHAZINE HCL 25 MG SUPP.RECT PR PRN (03:04)
[2019-03-17] MEDS ORDERED: PSEUDOEPHEDRINE HCL 30 MG TABLET PO PRN (03:04)
[2019-03-17] MEDS ORDERED: OXYTOCIN/NORMAL SALINE 20 UNIT/1,000 ML RTUINJ IV PRN (03:40)
[2019-03-17] MEDS ORDERED: IBUPROFEN 800 MG TABLET ONE (03:59)
--- NOTE | 2019-03-17 04:33 | Delivery Summary ---
Del Sum A-C Datetime Report Generated by CPN: 03/17/2019 04:32 DELIVERY PERSONNEL DELIVERY PERSONNEL: [id number] Delivery Doctor:: Tayler Pérez MD Anesthesiologist:: Ramses Moran MD Labor and Delivery Nurse:: Rosanne Ruggiero RN Crop Puller/ORDER RUNNER: Ana Hernandez, [employer] OPERATOR MATERNAL INFORMATION Delivery Anesthesia: Epidural Medications After Delivery: Pitocin Drip 20 Units/1000ml NSS; Cytotec 1000mcg Per Rectum/Vagina Estimated Blood Loss (ml): 100 Maternal Complications: None Provider Comments: VMI delivered in DELORES presentation. Loose nuchal cord. Shoulders and body delivered without difficulty. Cord doubly clamped and cut and infant to maternal abdomen. Placenta delivered intact spontaneously. FF at U. 1st degree perineal laceration. Mother and baby stable upon provider leaving the room. LABOR SUMMARY EDC: 03/17/2019 00:00 No. Babies in Womb: 1 Attempted: No Labor Anesthesia: Epidural LABOR INFORMATION Complete Dilatation: 03/17/2019 02:31 Oxytocin: Augmentation Group B Beta Strep: negative Antibiotics # of Doses: 0 Steroids Given: None Reason Steroids Not Administered: Not Applicable MEMBRANES Membranes Rupture Method: Artificial Rupture of Membranes: 03/16/2019 22:51 Length of Rupture (hr): 3.78 Amniotic Fluid Color: Clear Amniotic Fluid Amount: Moderate STAGES OF LABOR Stage 2 hr: 0 Stage 2 min: 7 Stage 3 hr: 0 Stage 3 min: 3 VAGINAL DELIVERY Episiotomy: None Laceration #1: Perineal Laceration Extension #1: First Degree Laceration Repair: Yes Laceration Repair Note: repaired in usual fashion Sponge Count Correct: Yes Sharps Count Correct: Yes BABY A INFORMATION Infant Delivery Date/Time: 03/17/2019 02:38 Born in Route : No : N/A Forceps: N/A Vacuum Extraction: N/A Shoulder Dystocia : No PRESENTATION/POSITION BABY A Presentation: Cephalic Cephalic Presentation: Vertex Breech Presentation: N/A PLACENTA INFORMATION BABY A Placenta Delivery Time : 03/17/2019 02:41 Placenta Method of Delivery: Spontaneous Placenta Status: Delivered SCORES BABY A Heart Rate 1 min: >100 bpm Resp Effort 1 min: Good Cry Reflex Irritability 1 min: Cough or Sneeze or Pulls Away Muscle Tone 1 min: Active Motion Color 1 min: Body [place], Extremities Blue SCORE 1 MIN: 9 Heart Rate 5 min: >100 bpm Resp Effort 5 min: Good Cry Reflex Irritability 5 min: Cough or Sneeze or Pulls Away Muscle Tone 5 min: Active Motion Color 5 min: Body [place], Extremities Blue SCORE 5 MIN: 9 INFANT INFORMATION BABY A Gestational Age at Delivery: 40.0 Gestational Status: Full Term- 39- 40.6 Weeks Outcome : Liveborn Condition : Stable Sex: Male IDENTIFICATION BABY A Verification Date/Time: 03/17/2019 03:25 ID Band Number: [id number] Mother's Name Verified: Yes Infant RN Verifying : Romel CARMEN Additional Verifying Personnel: [facility] RN WEIGHT/LENGTH BABY A Birthweight (gm): 3285 Weight (lb): 7 Weight (oz): 4 Infant Length (in): 20.00 Infant Length (cm): 50.80 CORD INFORMATION BABY A No. Cord Vessels: 3 Nuchal Cord : Around Neck x1, Loose Cord Blood Taken: Yes-For Storage (Mom's Blood type +) Suction: None ASSESSMENT BABY A Skin to Skin: Yes SIGNATURES Signature: with User ID: [email or web address]
[2019-03-17] MEDS: IBUPROFEN 800 MG TABLET PO SCH ×3 (06:01→21:33)
--- NOTE | 2019-03-17 09:30 | PDOC PROGRESS REPORT ---
Subjective-OB Progress Note for:: 03/17/19 Subjective: Doing well, family at [place], Physical Exam (OB) Vital Signs: Temp Pulse Resp BP Pulse Ox 98.2 F 79 15 108/60 100 03/17/19 07:46 03/17/19 07:46 03/17/19 07:46 03/17/19 07:46 03/17/19 07:46 Intake & Output 03/16/19 03/17/19 03/18/19 06:59 06:59 06:59 Weight 98.4 kg - Lochia Lochia Amount: Scant < 10 ml Lochia Color: Rubra/Red - Abdomen Description: Tender, Soft Hernia Present: No Fundal Description: Firm, Midline Fundal Height: u/u - u/2 Objective-Diagnostic Laboratory: 03/16/19 21:25 03/16/19 03/16/19 03/16/19 21:02 21:25 21:25 WBC 11.7 H RBC 4.02 Hgb 12.4 Hct 36.6 MCV 91 MCH 30.8 MCHC 33.8 RDW 13.7 Plt Count 157 Seg Neutrophils % 69.3 Lymphocytes % 22.3 Monocytes % 7.1 Eosinophils % 0.7 Basophils % 0.6 Absolute Neutrophils 8.1 Absolute Lymphocytes 2.6 Absolute Monocytes 0.8 Absolute Eosinophils 0.1 Absolute Basophils 0.1 Urine Color YELLOW Urine Appearance CLOUDY Urine pH 6.0 Ur Specific [place] 1.014 Urine Protein NEGATIVE Urine Glucose (UA) NEGATIVE Urine Ketones NEGATIVE Urine Blood MODERATE H Urine Nitrite NEGATIVE Ur Leukocyte Esterase LARGE H Blood Type O POSITIVE Antibody Screen NEGATIVE Assessment and Plan(PN) - Assessment and Plan (1) First degree laceration of perineum during delivery, Is this a current diagnosis for this admission?: Yes (2) Vaginal delivery Is this a current diagnosis for this admission?: Yes - Time Spent with Patient Time with patient: Less than 15 minutes Medications reviewed and adjusted accordingly: Yes - Disposition Anticipated Discharge: Home Within: within 24 hours
[2019-03-17] MEDS: FERROUS SULFATE 325 MG TABLET PO SCH ×2 (10:30→18:29)
[2019-03-17] MEDS: PRENATAL VITAMIN W DHA CAPSULE PO SCH (10:30)
[2019-03-17] MEDS: DOCUSATE SODIUM 100 MG CAPSULE PO SCH ×2 (10:30→18:29)
[2019-03-17] MEDS: SENNOSIDES/DOCUSATE 8.6-50 MG 1 EACH TABLET PO SCH (10:30)
[2019-03-17] MEDS: FAMOTIDINE 20 MG TABLET PO SCH (10:41)
[2019-03-18] MEDS: FAMOTIDINE 20 MG TABLET PO SCH ×2 (05:22→10:28)
[2019-03-18] MEDS: IBUPROFEN 800 MG TABLET PO SCH (05:24)
[2019-03-18 07:34] LABS: HEMATOCRIT 31.8 % (36.0-47.0); HEMOGLOBIN 10.8 g/dL (12.0-15.5); MEAN CORPUSCULAR HEMOGLOBIN 31.1 pg (27.0-33.4); MEAN CORPUSCULAR VOLUME 91 fl (80-97); PLATELET COUNT 124 10^3/uL (150-450); RED BLOOD COUNT 3.48 10^6/uL (3.72-5.28); RED CELL DISTRIBUTION WIDTH 13.9 % (11.5-14.0); WHITE BLOOD COUNT 7.6 10^3/uL (4.0-10.5)
[2019-03-18 08:54] VITALS: BP 117/67
--- NOTE | 2019-03-18 09:10 | PDOC PROGRESS REPORT ---
Subjective-OB Progress Note for:: 03/18/19 Subjective: Doing well, wants to go home today, will discuss with peds, Physical Exam (OB) Vital Signs: Temp Pulse Resp BP Pulse Ox 97.5 F 70 14 117/67 100 03/18/19 07:32 03/18/19 07:32 03/18/19 07:32 03/18/19 07:32 03/18/19 07:32 Intake & Output 03/17/19 03/18/19 03/19/19 06:59 06:59 06:59 Intake Total 1400 Balance 1400 Weight 98.4 kg - PIH/Pre-Eclampsia Headache: Absent Epigastric Pain: No Visual Changes: No - Lochia Lochia Amount: Small 10-25 ml Lochia Color: Rubra/Red - Abdomen Description: Soft, Round Hernia Present: No Fundal Description: Firm, Midline Fundal Height: u/u - u/2 Objective-Diagnostic Laboratory: 03/18/19 06:45 03/18/19 06:45 WBC 7.6 RBC 3.48 L Hgb 10.8 L Hct 31.8 L MCV 91 MCH 31.1 MCHC 34.0 RDW 13.9 Plt Count 124 L Assessment and Plan(PN) - Assessment and Plan (1) First degree laceration of perineum during delivery, Is this a current diagnosis for this admission?: Yes (2) Vaginal delivery Is this a current diagnosis for this admission?: Yes - Time Spent with Patient Time with patient: Less than 15 minutes Medications reviewed and adjusted accordingly: Yes - Disposition Anticipated Discharge: Home Within: within 24 hours
[2019-03-18] MEDS: FERROUS SULFATE 325 MG TABLET PO SCH (10:28)
[2019-03-18] MEDS: SENNOSIDES/DOCUSATE 8.6-50 MG 1 EACH TABLET PO SCH (10:28)
[2019-03-18] MEDS: DOCUSATE SODIUM 100 MG CAPSULE PO SCH (10:28)
[2019-03-18] MEDS: PRENATAL VITAMIN W DHA CAPSULE PO SCH (10:28)
--- NOTE | 2019-03-18 21:50 | PDOC DISCHARGE SUMMARY ---
Final Diagnosis Discharge Date: 03/18/19 Discharge Data - Discharge Medication Home Medications: Amox Tr/Potassium Clavulanate [Augmentin 875-125 mg Tablet] 1 tab PO BID #14 tablet 12/27/18 Vits96/Iron Fum/Folic [ Tablet] 1 tab PO DAILY 01/04/19 Reason(s) for Admission: Spontaneous Procedures: Ultrasound Intrapartum Procedure(s): Spontaneous Vaginal Delivery - Diagnosis Test Laboratory: Temp Pulse Resp BP Pulse Ox 97.5 F 70 14 117/67 100 03/18/19 14:10 03/18/19 14:10 03/18/19 14:10 03/18/19 07:32 03/18/19 14:10 03/16/19 03/16/19 03/18/19 21:02 21:25 06:45 RBC 4.02 3.48 L Hgb 12.4 10.8 L Hct 36.6 31.8 L Urine Opiates Screen NEGATIVE - Discharge information/Instructions Discharge Activity: Activity As Tolerated, Balance Activity w/Rest, No Lifting Over 10 Pounds, No Lifting/Push/Pulling, Pelvic Rest, No tub bath Discharge Diet: As Tolerated, Regular Disposition: HOME, SELF-CARE Follow up with: [facility] in: 3, 4, Weeks
== END 2019-03-18 14:34 | disposition home or self-care (01) | DRG 807 ==
LOC: LC 20:54 → LR 21:20 → UNDOADMIN 21:20 → 2N 03-17 04:44
PROVIDERS: ADMIT Student in an Organized Health Care Education/Training Program; ATTEND Student in an Organized Health Care Education/Training Program
PROC: 10E0XZZ Delivery of Products of Conception, External Approach (ICD-10-PCS; principal; 2019-03-17)
PROC: 0HQ9XZZ Repair Perineum Skin, External Approach (ICD-10-PCS; 2019-03-17)
DX: O69.81X0 Labor and delivery complicated by cord around neck, without compression, not applicable or unspecified (principal); Z37.0 Single live birth; O70.0 First degree perineal laceration during delivery; Z3A.39 39 weeks gestation of pregnancy
CPT/HCPCS: 36415; 80307; 81005; 85025; 85027; 86592; 86850; 86900; 86901; J0171; J2590; J3010; J3490

== ENCOUNTER → 2019-04-02 | Outpatient (CLI) | payer MEDICAID ==
--- NOTE | 2019-04-02 16:56 | RADIOLOGY REPORT (SQ) ---
EXAM DESCRIPTION: VENOUS UNILATERAL LOWER COMPLETED DATE/TIME: 04/02/2019 4:46 pm REASON FOR STUDY: POST LLE PAIN M79.605 PAIN IN LEFT LEG COMPARISON: None. TECHNIQUE: Dynamic and static schroeder scale and color images acquired of the left leg venous system. Se lected spectral images acquired with additional compression and augmentation maneuvers. The contralat eral common femoral vein and saphenofemoral junction were also imaged. Images stored on PACS. LIMITATIONS: None. FINDINGS: COMMON FEMORAL: Normal phasicity, compression and augmentation. No visualized echogenic ma terial on schroeder scale. No defects on color images. FEMORAL: Normal compression and augmentation. No visualized echogenic material on schroeder scale. No defe cts on color images. POPLITEAL: Normal compression, augmentation. No visualized echogenic material on schroeder scale. No defec ts on color images. CALF VESSELS: Normal compression, augmentation. No visualized echogenic material on schroeder scale. No de fects on color images. GSV and SSV: Normal compression, augmentation. No visualized echogenic material on schroeder scale. No def ects on color images. ANY DEEP VENOUS INSUFFICIENCY: Not evaluated. ANY EVIDENCE OF POPLITEAL CYST: No. OTHER: No other significant finding. CONTRALATERAL COMMON FEMORAL VEIN AND SAPHENOFEMORAL JUNCTION: Normal phasicity, compression and augmentation. No visualized echogenic material on schroeder scale. No de fects on color images. IMPRESSION: 1. NO EVIDENCE OF DVT OR SVT IN THE LEFT LEG. COMMENT: 1. The results were given to the patient's provider by the technologist on 04/02/2015 at 16 :45 hours. TECHNICAL DOCUMENTATION: JOB ID: [id number] [employer]- All Rights Reserved Reading location - IP/workstation name: [email or web address]
== END ==
LOC: SP 16:12
PROVIDERS: ATTEND Specialist
DX: M79.605 Pain in left leg (principal)
CPT/HCPCS: 93971